=== PATIENT | female | born 1955 | race Caucasian/White ===

== ENCOUNTER 2017-02-28 15:59 | Inpatient (IN) | payer OTHER ==
[2017-02-28] VITALS (7 sets, daily range): BP systolic 95–115; BP diastolic 63–70
[~2017-02-28] VITALS: Ht 167.6 cm; Wt 50.8 kg
[~2017-02-28 15:59] MED LIST: BUPR300T55 PO; EFFEXOR; GABA-1 PO; MELO-150 PO; MUSCLE RELAXANT; NEURONTIN; TIZA-1 PO
[2017-02-28] MEDS ORDERED: MIL50PT GT (16:12)
[2017-02-28] MEDS ORDERED: METHY10 GT (16:12)
--- NOTE | 2017-02-28 16:15 | ER Report ---
History and Physical Time Seen By MD: 16:15 Hx. of Stated Complaint: PT. here for RLQ pain, radiates to left side. Doctor sent her for further work-up. Fever, blood and protein in urine at doctor's office today. HPI/ROS CHIEF COMPLAINT: Abdominal pain HISTORY OF PRESENT ILLNESS: 61-year-old female patient presents to emergency room with complaint of right sided abdominal pain. Patient states she's been having pain since Sunday. Patient states that pain is worse with walking as well as riding in the car. She states she is not had nausea, vomiting yesterday. She states she's not had much to eat today, less than should eat was toast around noon. She states she's had fever of 101.4. She states she's not had any sinus congestion, cough, sore throat. She states that pain seemed to start in the right lower quadrant, has migrated around the abdomen but has stopped in the right lower quadrant. She rates pain currently 2-3 out of 10. She has not taken any medication for this. She was seen by her primary care provider who referred her to the emergency room for further evaluation. REVIEW OF SYSTEMS: Respiratory: No cough, no dyspnea. Cardiovascular: No chest pain, no palpitations. Gastrointestinal: As noted above Musculoskeletal: No back pain. Allergies: Coded Allergies: cod liver oil (Verified Adverse Reaction, Mild, HAIR LOSS, 02/28/17) Uncoded Allergies: BANDAID [employer]IVE [employer] (Allergy, Mild, SKIN IRRITATION, 01/08/12) Home Meds Reported Medications Methylphenidate Hcl (RITALIN) 10 Mg Tab, 10 MG GT, TAB 02/28/17 Milnacipran (SAVELLA) 50 Mg Tab, 50 MG GT, TAB 02/28/17 Tizanidine Hcl (Zanaflex) 2 Mg Tablet, 4 MG PO QHS 01/08/12 Gabapentin (Neurontin) 600 Mg Tablet, 600 MG PO PM AND HS 01/08/12 Discontinued Reported Medications Bupropion Hcl (Wellbutrin Xl) 300 Mg Tab.sr.24h, 300 MG PO QAM 01/08/12 Meloxicam (Mobic) 15 Mg Tablet, 15 MG PO QPM 01/08/12 Past Medical/Surgical History Patient has a past medical history of depression, abnormal Pap smear. Patient has a surgical history of finger repair, tonsillectomy, LASIK surgery. Reviewed Nurses Notes: Yes Constitutional Vital Sign - Last 24 Hours 02/28/17 16:04 Temp 97.5 Resp 20 O2 Delivery Room Air Intake and Output 02/28/17 02/28/17 03/01/17 15:00 23:00 07:00 Intake Total 1000 ml Balance 1000 ml Physical Exam General Appearance: The patient is alert, has no immediate need for airway protection and no current signs of toxicity. Respiratory: Chest is non tender, lungs are clear to auscultation. Cardiac: regular rate and rhythm Gastrointestinal: Abdomen is soft and tender in right upper and lower quadrants , no masses, bowel sounds are hyperactive. Musculoskeletal: Neck: Neck is supple and non tender. Extremities have full range of motion and are non tender. Skin: No rashes or lesions. DIFFERENTIAL DIAGNOSIS: After history and physical exam differential diagnosis was considered for abdominal pain including but not limited to appendicitis, cholecystitis, gastritis and urinary tract infection. Medical Decision Making Data Points Result Diagram: 02/28/17 1626 02/28/17 1626 Laboratory Hematology Test 02/28/17 16:26 02/28/17 16:56 Red Blood Count 4.80 M/uL (4.17-5.56) Mean Corpuscular Volume 93.7 fL (80.0-96.0) Mean Corpuscular Hemoglobin 32.7 pg (26.0-33.0) Mean Corpuscular Hemoglobin Concent 34.8 g/dL (32.0-36.0) Red Cell Distribution Width 12.3 % (11.5-14.5) Mean Platelet Volume 8.3 fL (7.2-11.1) Neutrophils (%) (Auto) 89.5 % (39.4-72.5) Lymphocytes (%) (Auto) 4.6 % (17.6-49.6) Monocytes (%) (Auto) 5.5 % (4.1-12.4) Eosinophils (%) (Auto) 0.1 % (0.4-6.7) Basophils (%) (Auto) 0.3 % (0.3-1.4) Nucleated RBC Relative Count (auto) 0.0 /100WBC Neutrophils # (Auto) 17.5 K/uL (2.0-7.4) Lymphocytes # (Auto) 0.9 K/uL (1.3-3.6) Monocytes # (Auto) 1.1 K/uL (0.3-1.0) Eosinophils # (Auto) 0.0 K/uL (0.0-0.5) Basophils # (Auto) 0.1 K/uL (0.0-0.1) Nucleated RBC Absolute Count (auto) 0.01 K/uL Sodium Level 133 mmol/L (137-145) Potassium Level 3.6 mmol/L (3.5-5.0) Chloride Level 95 mmol/L (98-107) Carbon Dioxide Level 27 mmol/L (22-31) Blood Urea Nitrogen 9 mg/dl (7-18) Creatinine 0.70 mg/dl (0.52-1.04) Glomerular Filtration Rate Calc > 60.0 Random Glucose 142 mg/dl (75-110) Calcium Level 9.4 mg/dl (8.4-10.2) Total Bilirubin 0.9 mg/dl (0.2-1.3) Aspartate Amino Transf (AST/SGOT) 25 U/L (0-35) Alanine Aminotransferase (ALT/SGPT) 23 U/L (0-56) Alkaline Phosphatase 95 U/L (0-126) C-Reactive Protein 17.7 mg/dl (<1.0) Total Protein 8.1 gm/dl (6.3-8.2) Albumin 4.3 g/dl (3.5-5.0) Amylase Level 62 U/L (0-110) Lipase 27 U/L (23-300) Urine Color Yellow Urine Clarity Clear Urine pH 7.0 pH (4.8-9.5) Urine Specific Bryant 1.008 Urine Protein 30 mg/dL (NEGATIVE) Urine Glucose (UA) 50 mg/dL (NEGATIVE) Urine Ketones Negative mg/dL (NEGATIVE) Urine Blood Small (NEGATIVE) Urine Nitrite Negative (NEGATIVE) Urine Bilirubin Negative (NEGATIVE) Urine Urobilinogen 2.0 mg/dL (0.2-1.9) Urine Leukocyte Esterase Negative (NEGATIVE) Urine RBC 2 /HPF (0-2/HPF) Urine WBC 1 /HPF (0-5/HPF) Urine Squamous Epithelial Cells Few /LPF (</=FEW) Urine Transitional Epithelial Cells Few /LPF (NONE-FEW) Urine Bacteria Negative /HPF (NONE-FEW) Urine Mucus None /HPF (NONE-FEW) Chemistry Test 02/28/17 16:26 02/28/17 16:56 White Blood Count 19.5 k/uL (4.5-11.0) Red Blood Count 4.80 M/uL (4.17-5.56) Hemoglobin 15.7 g/dL (12.0-16.0) Hematocrit 45.0 % (34.0-47.0) Mean Corpuscular Volume 93.7 fL (80.0-96.0) Mean Corpuscular Hemoglobin 32.7 pg (26.0-33.0) Mean Corpuscular Hemoglobin Concent 34.8 g/dL (32.0-36.0) Red Cell Distribution Width 12.3 % (11.5-14.5) Platelet Count 226 K/uL (150-450) Mean Platelet Volume 8.3 fL (7.2-11.1) Neutrophils (%) (Auto) 89.5 % (39.4-72.5) Lymphocytes (%) (Auto) 4.6 % (17.6-49.6) Monocytes (%) (Auto) 5.5 % (4.1-12.4) Eosinophils (%) (Auto) 0.1 % (0.4-6.7) Basophils (%) (Auto) 0.3 % (0.3-1.4) Nucleated RBC Relative Count (auto) 0.0 /100WBC Neutrophils # (Auto) 17.5 K/uL (2.0-7.4) Lymphocytes # (Auto) 0.9 K/uL (1.3-3.6) Monocytes # (Auto) 1.1 K/uL (0.3-1.0) Eosinophils # (Auto) 0.0 K/uL (0.0-0.5) Basophils # (Auto) 0.1 K/uL (0.0-0.1) Nucleated RBC Absolute Count (auto) 0.01 K/uL Glomerular Filtration Rate Calc > 60.0 Calcium Level 9.4 mg/dl (8.4-10.2) Total Bilirubin 0.9 mg/dl (0.2-1.3) Aspartate Amino Transf (AST/SGOT) 25 U/L (0-35) Alanine Aminotransferase (ALT/SGPT) 23 U/L (0-56) Alkaline Phosphatase 95 U/L (0-126) C-Reactive Protein 17.7 mg/dl (<1.0) Total Protein 8.1 gm/dl (6.3-8.2) Albumin 4.3 g/dl (3.5-5.0) Amylase Level 62 U/L (0-110) Lipase 27 U/L (23-300) Urine Color Yellow Urine Clarity Clear Urine pH 7.0 pH (4.8-9.5) Urine Specific Bryant 1.008 Urine Protein 30 mg/dL (NEGATIVE) Urine Glucose (UA) 50 mg/dL (NEGATIVE) Urine Ketones Negative mg/dL (NEGATIVE) Urine Blood Small (NEGATIVE) Urine Nitrite Negative (NEGATIVE) Urine Bilirubin Negative (NEGATIVE) Urine Urobilinogen 2.0 mg/dL (0.2-1.9) Urine Leukocyte Esterase Negative (NEGATIVE) Urine RBC 2 /HPF (0-2/HPF) Urine WBC 1 /HPF (0-5/HPF) Urine Squamous Epithelial Cells Few /LPF (</=FEW) Urine Transitional Epithelial Cells Few /LPF (NONE-FEW) Urine Bacteria Negative /HPF (NONE-FEW) Urine Mucus None /HPF (NONE-FEW) Urinalysis Test 02/28/17 16:56 Urine Color Yellow Urine Clarity Clear Urine pH 7.0 pH (4.8-9.5) Urine Specific Bryant 1.008 Urine Protein 30 mg/dL (NEGATIVE) Urine Glucose (UA) 50 mg/dL (NEGATIVE) Urine Ketones Negative mg/dL (NEGATIVE) Urine Blood Small (NEGATIVE) Urine Nitrite Negative (NEGATIVE) Urine Bilirubin Negative (NEGATIVE) Urine Urobilinogen 2.0 mg/dL (0.2-1.9) Urine Leukocyte Esterase Negative (NEGATIVE) Urine RBC 2 /HPF (0-2/HPF) Urine WBC 1 /HPF (0-5/HPF) Urine Squamous Epithelial Cells Few /LPF (</=FEW) Urine Transitional Epithelial Cells Few /LPF (NONE-FEW) Urine Bacteria Negative /HPF (NONE-FEW) Urine Mucus None /HPF (NONE-FEW) EKG/Imaging Imaging CT abdomen and pelvis with IV contrast Indication: Right lower quadrant pain Comparison: None available. . Technique: Axial CT images were obtained through the abdomen and pelvis during injection of nonionic iodinated intravenous contrast. Reformatted coronal and sagittal images were also obtained. One of the following dose optimization techniques was utilized in the performance of this exam: Automated exposure control; adjustment of the mA and/or kV according to the patient's size ; or use of an iterative reconstruction technique. Specific details can be referenced in the facility's radiology CT exam operational policy. Contrast: 88 ml of Isovue-370 IV contrast. Findings: Lower lung briggs: Limited views lower lung field are unremarkable. Liver: No focal parenchymal abnormality of the liver. Biliary: Gallbladder appears unremarkable as well as the intra and extra hepatic biliary system. Pancreas: Normal appearance. Spleen: Normal appearance. Adrenal glands: Unremarkable. Kidneys / retroperitoneum: No evidence of nephrolithiasis or hydronephrosis Bowel / peritoneum / mesenteries: Appendicolith is noted towards the base of the appendix. The appendix is dilated, hyperemic with a large amount of periappendiceal stranding which is seen along the hepatic edge and traversing down the right paracolic gutter. Adjacent inflammatory nodes are noted. No evidence of free air or drainable fluid collection. Lymph node assessment: No pathologic adenopathy identified. Pelvic structures: There is a well-circumscribed, enhancing circular lesion within the uterus measuring 2.9 x 2.7 cm most indicative of a fibroid. Vessels: No significant atherosclerotic calcifications seen throughout a nonaneurysmal abdominal aorta and branches. Enlarged left gonadal vein is noted. Musculoskeletal / Body wall: No acute or aggressive osseous abnormality. IMPRESSION: 1. Acute appendicitis. Large amount of adjacent inflammatory change without evidence of free air or drainable fluid collection. 2. Other incidental findings as above. Results were called to Dr. KEITH CARDONA at 02/28/2017 5:38 PM. Report Dictated By: Nitish Tran MD at 02/28/2017 5:30 PM Report E-Signed By: Nitish Tran MD at 02/28/2017 5:38 PM ED Course/Re-evaluation ED Course Patient was admitted to exam room, history and physical were obtained. Differential diagnoses were considered. On exam patient had tenderness in the right upper and lower quadrants. A CBC, CMP, urinalysis, CT scan of abdomen and pelvis was done. Patient had a white count of 19,000 with left shift, CMP is unremarkable, urinalysis was also unremarkable. CT scan of abdomen and pelvis shows a acute appendicitis with significant amounts of fat stranding. I discussed the case with Dr. Vickers, surgeon, who stated that he already talked with the patient's as they met in the hallway. He had already reviewed the CT scan and was going to take the patient's surgery. He requested the patient receive 1 g of ertapenem prior to surgery. He also stated that he was going into a case and would be down to evaluate the patient after that. I discussed this with the patient and her and they verbalized understanding and agreement with plan. Decision to Disposition Date: Feb 28, 2017 Decision to Disposition Time: 18:29 Depart Departure Latest Vital Signs Vital Signs Date Time Temp Pulse Resp B/P (MAP) Pulse Ox O2 Delivery O2 Flow Rate FiO2 02/28/17 16:04 97.5 20 Room Air Impression: Primary Impression: Appendicitis Condition: Condition Unchanged Disposition: ADMIT FROM ER TO OR Referrals: PETRA MAHAJAN (PCP) Problem Qualifiers Primary Impression: Appendicitis Appendicitis type: acute appendicitis Acute appendicitis type: with generalized peritonitis Qualified Codes: K35.2 - Acute appendicitis with generalized peritonitis KEITH CARDONA Feb 28, 2017 16:15
[2017-02-28] MEDS ORDERED: NS(*) 0.9% 1000 ML BAG 1,000 ML IV ONE (16:22)
[2017-02-28] MEDS ORDERED: IOPAMIDOL 76% 75 ML INFUS BTL 75 ML ONE (16:36)
[2017-02-28] MEDS ORDERED: NS 0.9% 50 ML VIAL 50 ML ONE (16:36)
[2017-02-28 16:42] LABS: PLATELET COUNT, AUTOMATED 226 K/uL (150-450)
--- NOTE | 2017-02-28 17:41 | RADIOLOGY IMAGING REPORT ---
FACILITY: [facility] [place] PATIENT NAME: Monica Chase : 1955 MR: [id number] V: [id number] EXAM DATE: ORDERING PHYSICIAN: KEITH CARDONA TECHNOLOGIST: Location: [facility] [place] Patient: Monica Chase : 1955 Visit/Account:[id number] Date of Sevice: 02/28/2017 CT abdomen and pelvis with IV contrast Indication: Right lower quadrant pain Comparison: None available. . Technique: Axial CT images were obtained through the abdomen and pelvis during injection of nonioni c iodinated intravenous contrast. Reformatted coronal and sagittal images were also obtained. One of the following dose optimization techniques was utilized in the performance of this exam: Automated ex posure control; adjustment of the mA and/or kV according to the patient's size; or use of an iterativ e reconstruction technique. Specific details can be referenced in the facility's radiology CT exam operational policy. Contrast: 88 ml of Isovue-370 IV contrast. Findings: Lower lung briggs: Limited views lower lung field are unremarkable. Liver: No focal parenchymal abnormality of the liver. Biliary: Gallbladder appears unremarkable as well as the intra and extra hepatic biliary system. Pancreas: Normal appearance. Spleen: Normal appearance. Adrenal glands: Unremarkable. Kidneys / retroperitoneum: No evidence of nephrolithiasis or hydronephrosis Bowel / peritoneum / mesenteries: Appendicolith is noted towards the base of the appendix. The appen audra is dilated, hyperemic with a large amount of periappendiceal stranding which is seen along the he patic edge and traversing down the right paracolic gutter. Adjacent inflammatory nodes are noted. N o evidence of free air or drainable fluid collection. Lymph node assessment: No pathologic adenopathy identified. Pelvic structures: There is a well-circumscribed, enhancing circular lesion within the uterus mike uring 2.9 x 2.7 cm most indicative of a fibroid. Vessels: No significant atherosclerotic calcifications seen throughout a nonaneurysmal abdominal aort a and branches. Enlarged left gonadal vein is noted. Musculoskeletal / Body wall: No acute or aggressive osseous abnormality. IMPRESSION: 1. Acute appendicitis. Large amount of adjacent inflammatory change without evidence of free air or drainable fluid collection. 2. Other incidental findings as above. Results were called to Dr. KEITH CARDONA at 02/28/2017 5:38 PM. Report Dictated By: Nitish Tran MD at 02/28/2017 5:30 PM Report E-Signed By: Nitish Tran MD at 02/28/2017 5:38 PM WSN:[id number]
[2017-02-28] MEDS ORDERED: ERTAPENEM(*) 1 GM VIAL 1 GM in NS(*) 0.9% 100 ML ADDVANT BAG 100 ML IVPB ONE (18:05)
[2017-02-28] MEDS ORDERED: MORPHINE 4 MG/ML SYR IVP ONE (18:05)
[2017-02-28] MEDS ORDERED: ONDANSETRON 4 MG/2 ML VIAL IVP ONE (18:05)
[2017-02-28] MEDS ORDERED: FAMOTIDINE(*) 20MG/50ML PREMIX 50 ML IVPB ONE (18:30)
[2017-02-28] MEDS ORDERED: NORMOSOL R SOLN(*) 1000 ML BAG 1,000 ML IV ONE (18:30)
[2017-02-28] MEDS ORDERED: ROPIVACAINE 0.5% 20 ML VIAL ONE (18:47)
--- NOTE | 2017-02-28 19:03 | Gen Surgery History & Physical ---
History of Present Illness Chief Complaint Abdominal pain History of Present Illness 61-year-old female presents to the emergency room with a three-day history of abdominal pain that started periumbilically and migrated to the right lower quadrant. She's had subjective fevers and chills and had nausea and vomiting yesterday but not so much today. She's denied any constipation or diarrhea. Her white blood cell count in the emergency room was just under 20,[address] scan is suspicious for appendicitis with a lot of periappendiceal inflammation. There is no evidence of an abscess. I have been consult for further evaluation and management. History Home Meds Reported Medications Methylphenidate Hcl (RITALIN) 10 Mg Tab, 10 MG GT, TAB 02/28/17 Milnacipran (SAVELLA) 50 Mg Tab, 50 MG GT, TAB 02/28/17 Tizanidine Hcl (Zanaflex) 2 Mg Tablet, 4 MG PO QHS 01/08/12 Gabapentin (Neurontin) 600 Mg Tablet, 600 MG PO PM AND HS 01/08/12 Discontinued Reported Medications Bupropion Hcl (Wellbutrin Xl) 300 Mg Tab.sr.24h, 300 MG PO QAM 01/08/12 Meloxicam (Mobic) 15 Mg Tablet, 15 MG PO QPM 01/08/12 Allergies: Coded Allergies: cod liver oil (Verified Adverse Reaction, Mild, HAIR LOSS, 02/28/17) Uncoded Allergies: B[employer] (Allergy, Mild, SKIN IRRITATION, 01/08/12) Review of Systems All Systems Reviewed/Normal: Yes, Except as Noted Constitutional: Fever, Chills Gastrointestinal: Nausea, Vomiting, Abdominal Pain Exam General Appearance: Alert, Awake, No Acute Distress, Afebrile Neuro: No Gross deficits Eyes: PERRLA GI: Other (soft, right lower quadrant tenderness to palpation with focal peritoneal signs) Extremities: Warm, Perfused Medical Decision Making Data Points Result Diagram: 02/28/17 1626 02/28/17 1626 Assessment and Plan Problems: (1) Appendicitis Status: Acute Assessment & Plan: 02/28/17: Admit, IV antibiotics, nothing by mouth, to OR tonight for diagnostic laparoscopy with appendectomy. I have explained this plan to her. I have explained the possibilities for surgery since her CT scan looks like her right lower quadrant is very inflamed around the appendix and her symptoms have been going on for 3 days. It is possible that I could get into her abdomen and find it very difficult to remove her appendix because of a phlegmon. If this is the case I may not remove her appendix and will treat her with antibiotics with plans for interval appendectomy in 6 weeks after the inflammation has completely resolved. I have mentioned the possibility of needing to put a drain in if an abscess is found during surgery. I have mentioned the possibility of her needing to remain in the hospital for several days on antibiotics depending on the severity of her appendix as assessed during surgery. I have explained the procedure in great detail as well as the alternatives, risks, and expected recovery. She indicates her understanding of this discussion and her questions been answered. She indicates that she would like to proceed with this plan including surgery. Condition Stable Time Spent: < 30 min Venous Thromboembolism VTE Risk Physician Assess for VTE Risk: Yes Patient's VTE Risk: Low VTE Diagnostic Test 2 Days Prior to Admit: No Antithrombotics Is Pt On Any Antithrombotics?: No Problem Qualifiers (1) Appendicitis: Appendicitis type: acute appendicitis Acute appendicitis type: with generalized peritonitis Qualified Codes: K35.2 - Acute appendicitis with generalized peritonitis TONA APONTE MD Feb 28, 2017 19:03
[2017-02-28] MEDS ORDERED: SUCCINYLCHOL CHL 200MG/10ML VL ONE (19:05)
[2017-02-28] MEDS ORDERED: ROCURONIUM BROM 10 MG/ML 5 ML ONE (19:05)
[2017-02-28] MEDS ORDERED: KETOROLAC 30 MG/ML VIAL ONE (19:46)
[2017-02-28] MEDS ORDERED: PROPOFOL EMUL(*) 10MG/ML 20 ML 20 ML ONE (19:46)
[2017-02-28] MEDS ORDERED: DEXAMETHASONE SOD PHOS 10MG/ML ONE (19:46)
[2017-02-28] MEDS ORDERED: PHENYLEPHRINE/NS/PF 0.4MG/10ML ONE (19:46)
[2017-02-28] MEDS ORDERED: LIDOCAINE MPF 1% 5 ML VIAL ONE (19:46)
[2017-02-28] MEDS ORDERED: ONDANSETRON 4 MG/2 ML VIAL ONE (19:46)
[2017-02-28] MEDS ORDERED: SUGAMMADEX SOD 200 MG/2 ML SDV ONE (20:30)
[2017-02-28] MEDS ORDERED: NS 0.9% IRRIGATION 1000ML PLCT IR ONE (20:38)
[2017-02-28] MEDS ORDERED: NALOXONE HCL 0.4 MG/ML VIAL IVP PRN (21:00)
[2017-02-28] MEDS ORDERED: FLUSH 10 ML SYR IVP PRN (21:00)
[2017-02-28] MEDS ORDERED: fentaNYL CITR 100 MCG/2 ML AMP ONE (21:01)
--- NOTE | 2017-02-28 21:14 | Post Operative Progress Note ---
Post Operative Progress Note Date: Feb 28, 2017 Time: 21:01 Surgeon: Alee Dictation number: [id number] Anesthesia: GETA by Dr. Askew Pre-Op Diagnosis: Acute appendicitis Post-Op Diagnosis: TRAV Findings: C/W dx, advanced appendicitis with early phlegmon, no abscess Procedure(s): Lap appy Specimen Removed:(May be N/A): Appendix Complications: None Fluids: See anesthesia record Estimated Blood Loss: Minimal Date OP Note Dictated: Feb 28, 2017 Time OP Note Dictated: 21:03 TONA APONTE MD Feb 28, 2017 21:14
[2017-02-28] MEDS: HYDROmorphone PCA 6 MG/30 ML IV PRN (22:41)
[2017-02-28] MEDS: NS(*) 0.9% 1000 ML BAG 1,000 ML IV PRN (22:41)
--- NOTE | 2017-02-28 22:55 | OPERATIVE REPORT 1 ---
EVENT DATE: February 28, 2017 SURGEON: Neville Vickers MD ANESTHESIOLOGIST: Sebas Askew MD ANESTHESIA: General endotracheal anesthesia. PREOPERATIVE DIAGNOSIS Acute appendicitis. POSTOPERATIVE DIAGNOSIS Acute appendicitis. PROCEDURE PERFORMED Laparoscopic appendectomy. COMPLICATIONS None. CONDITION Stable. BLOOD LOSS Minimal. FINDINGS This patient had very advanced appendicitis with early phlegmon formation, but there was not any abscess, and no obvious perforation. SPECIMEN Appendix. INDICATIONS This is a 61-year-old female who presented to the Emergency Department after three days of abdominal pain that migrated to the right lower quadrant. She was also having associated nausea, vomiting, fevers, and chills. No constipation or diarrhea. Her white blood cell count was almost 20,000. A CT scan was suspicious for acute appendicitis with very marked periappendiceal inflammation. With this information, she was consented for appendectomy. DESCRIPTION OF PROCEDURE The patient was brought to the operating room and placed supine on the operating table. General endotracheal anesthesia was administered, and her abdomen was prepped and draped in a sterile fashion. Timeout was completed, and I injected the infraumbilical skin with 0.5% ropivacaine plain. I made a curvilinear smiley face type incision in the infraumbilical rim and dissected down to the dermis and into the subcutaneous fat. I identified the midline fascia and made a vertical incision in the midline fascia. I then grasped the fascial edges with Iain clamps and retracted the fascia towards the ceiling away from the underlying viscera and then bluntly entered her peritoneal cavity with my finger. I placed two interrupted 0 Vicryl sutures transversely through the vertical fascial defect, inserted a 12 mm Chaim type port through this wound, and secured it in place with sutures. I then insufflated the abdomen to a pressure of 15 mmHg and inserted a 5 mm, 30-degree angled scope through this port. Under direct visualization, I placed a 5 mm port in the suprapubic midline and a 5 mm port in the left lower quadrant. The patient was placed in Trendelenburg and planed towards her left to move the viscera from the right lower quadrant. I then identified the ascending colon and the cecum. I then observed where the terminal ileum emptied into this cecum and then began searching for the appendix in this location. I could not find the appendix in an easy fashion. I then mobilized the cecum by dividing the lateral attachments and medializing the cecum. Even then, I still was having difficulty finding the appendix. After doing some blunt dissection and identifying where the teniae come together at the end of the cecum, ultimately I was able to identify the base of the appendix, but it dove down into a retrocecal position into a phlegmonous mass. With some blunt dissection and using Harmonic dissection, I was ultimately able to separate it away from the phlegmonous mass. After quite a bit of dissection and cleaning off the proximal portion of the appendix, I made a window around the base of the appendix and used the Endo CESIA stapler with a blue load to divide the base of the appendix flush with the cecum. This helped me to identify the mesoappendix , which I divided in a slow progressive manner with the Harmonic scalpel and blunt dissection. Ultimately, I was able to get completely around the appendix and separate it from the phlegmonous tissue, and then it was placed in a surgical specimen retrieval bag and removed from the abdomen through the umbilical port site. I irrigated and dried the right lower quadrant and inspected the staple line, which was flush with the cecum. There was no remaining appendix left behind. When I inspected the edge of this phlegmon that I removed and mobilized, it looked like lateral to this that I could see the general femoral nerve which was intact, and the abdominal wall muscles as well as the psoas. I then reapproximated the peritoneum and covered up the general femoral nerve and the abdominal wall muscles on this area that I had dissected into in trying to free up the appendix, and so I reapproximated this tissue with running V-Loc absorbable suture without injuring the nerve or any other structures. This effectively closed down this space, and also I could clearly see the pocket that the appendix had been in. I irrigated and dried the right lower quadrant, making sure I removed all the irrigation fluid from the right lower quadrant and the pelvis, and then I placed a 10 mm flat Dominik- Niño drain into this area where the appendix had been and exited through the left lower quadrant port site. This was secured at the skin with an 0 silk suture. I then desufflated the peritoneal cavity while I watched where the drain was and held it into place so it drained nicely where the appendix was located. I then removed the remaining ports and instruments and then closed the midline fascia with interrupted 0 Vicryl sutures. When these were tied down , the fascia was well approximated with no remaining fascial defect. I closed the skin at the two remaining port sites with 4-0 Monocryl subcuticular sutures. The skin was cleaned and dried, and Steri-Strips were applied, followed by sterile surgical dressings on the two incisions and then drain sponges around the drain. The patient was then awakened and extubated in the operating room and transported to the recovery room in stable condition having tolerated the procedure without any apparent problems. MARISA
[2017-03-01 04:15] VITALS: BP 101/63
[2017-03-01 05:54] LABS: PLATELET COUNT, AUTOMATED 172 K/uL (150-450)
[2017-03-01] MEDS: NS(*) 0.9% 1000 ML BAG 1,000 ML IV PRN ×2 (06:40→16:26)
--- NOTE | 2017-03-01 07:05 | General Surgery Progress Note ---
Subjective Progress Notes Subjective Main complaint is postoperative pain. Mild nausea earlier, not not. No flatus. Feels hungry. Physical Exam Vital Signs Date Time Temp Pulse Resp B/P (MAP) Pulse Ox O2 Delivery O2 Flow Rate FiO2 03/01/17 04:37 14 97 03/01/17 04:15 97.5 66 101/63 (76) Room Air 02/28/17 23:30 0.5 General Appearance: Alert, Awake, No Acute Distress, Afebrile GI: Other (Soft, appropriate postop TTP, dressings C/D/I.) Extremities: Warm, Perfused Result Diagram: 03/01/17 0530 03/01/17 0530 Assessment and Plan Problems: (1) Appendicitis Status: Acute Assessment & Plan: 02/28/17: Admit, IV antibiotics, nothing by mouth, to OR tonight for diagnostic laparoscopy with appendectomy. I have explained this plan to her. I have explained the possibilities for surgery since her CT scan looks like her right lower quadrant is very inflamed around the appendix and her symptoms have been going on for 3 days. It is possible that I could get into her abdomen and find it very difficult to remove her appendix because of a phlegmon. If this is the case I may not remove her appendix and will treat her with antibiotics with plans for interval appendectomy in 6 weeks after the inflammation has completely resolved. I have mentioned the possibility of needing to put a drain in if an abscess is found during surgery. I have mentioned the possibility of her needing to remain in the hospital for several days on antibiotics depending on the severity of her appendix as assessed during surgery. I have explained the procedure in great detail as well as the alternatives, risks, and expected recovery. She indicates her understanding of this discussion and her questions been answered. She indicates that she would like to proceed with this plan including surgery. 03/01/17: POD#1 s/p lap appy, complex with early phlegmon. Doing well. No flatus. Will continue bowel rest but will allow ice chips today. Continue IV abx. Pt is afebrile and WBC is coming down. Ambulate, pulmonary hygiene, PPI for GI prophylaxis, hold off on lovenox due to nature of surgery and bleeding risk but using SCDs for VTE prophylaxis. Condition Stable. Time Spent: < 30 min Exam Sepsis Risk: No Definite Risk Problem Qualifiers (1) Appendicitis: Appendicitis type: acute appendicitis Acute appendicitis type: with generalized peritonitis Qualified Codes: K35.2 - Acute appendicitis with generalized peritonitis TONA APONTE MD Mar 01, 2017 07:05
[2017-03-01] MEDS ORDERED: CALCIUM CL 100 MG/1 ML SYR 1,000 MG in NS(*) 0.9% 100 ML BAG 100 ML IVPB ONE (07:30)
[2017-03-01 07:39] VITALS: Ht 167.6 cm; Wt 50.8 kg
[2017-03-01 08:04] VITALS: BP 106/93
[2017-03-01] MEDS: ERTAPENEM(*) 1 GM VIAL 1 GM in NS(*) 0.9% 100 ML BAG 100 ML IVPB SCH (09:13)
[2017-03-01] MEDS: PANTOPRAZOLE SOD 40 MG IV VIAL IVP SCH (09:13)
[2017-03-01 16:22] VITALS: BP 106/66
[2017-03-01] MEDS ORDERED: ERTAPENEM(*) 1 GM VIAL 1 GM in NS(*) 0.9% 100 ML ADDVANT BAG 100 ML IVPB SCH (18:00)
[2017-03-01 19:15] VITALS: BP 104/67
[2017-03-01 23:08] VITALS: BP 103/58
[2017-03-02] VITALS (7 sets, daily range): BP systolic 89–130; BP diastolic 51–81
[2017-03-02] MEDS: NS(*) 0.9% 1000 ML BAG 1,000 ML IV PRN (01:54)
[2017-03-02] MEDS: HYDROmorphone PCA 6 MG/30 ML IV PRN (02:04)
[2017-03-02 06:12] LABS: PLATELET COUNT, AUTOMATED 177 K/uL (150-450)
--- NOTE | 2017-03-02 08:19 | General Surgery Progress Note ---
Subjective Progress Notes Subjective Feeling pretty good. No flatus yet. Physical Exam Vital Signs Date Time Temp Pulse Resp B/P (MAP) Pulse Ox O2 Delivery O2 Flow Rate FiO2 03/02/17 07:39 12 90 03/02/17 07:21 Room Air 03/02/17 07:21 98.0 76 112/68 (83) 03/02/17 03:16 0.5 Intake and Output 03/03/17 07:00 Intake Total 120 ml Output Total 65 ml Balance 55 ml Intake Oral 120 ml Output Drainage Total 65 ml # Voids 1 General Appearance: Alert, Awake, No Acute Distress, Afebrile GI: Other (Soft, appropriate postop TTP, dressings C/D/I. RENATO with serosanguinous drainage.) Extremities: Warm, Perfused Result Diagram: 03/02/17 0540 03/02/17 0540 Assessment and Plan Problems: (1) Appendicitis Status: Acute Assessment & Plan: 02/28/17: Admit, IV antibiotics, nothing by mouth, to OR tonight for diagnostic laparoscopy with appendectomy. I have explained this plan to her. I have explained the possibilities for surgery since her CT scan looks like her right lower quadrant is very inflamed around the appendix and her symptoms have been going on for 3 days. It is possible that I could get into her abdomen and find it very difficult to remove her appendix because of a phlegmon. If this is the case I may not remove her appendix and will treat her with antibiotics with plans for interval appendectomy in 6 weeks after the inflammation has completely resolved. I have mentioned the possibility of needing to put a drain in if an abscess is found during surgery. I have mentioned the possibility of her needing to remain in the hospital for several days on antibiotics depending on the severity of her appendix as assessed during surgery. I have explained the procedure in great detail as well as the alternatives, risks, and expected recovery. She indicates her understanding of this discussion and her questions been answered. She indicates that she would like to proceed with this plan including surgery. 03/01/17: POD#1 s/p lap appy, complex with early phlegmon. Doing well. No flatus. Will continue bowel rest but will allow ice chips today. Continue IV abx. Pt is afebrile and WBC is coming down. Ambulate, pulmonary hygiene, PPI for GI prophylaxis, hold off on lovenox due to nature of surgery and bleeding risk but using SCDs for VTE prophylaxis. 03/02/17: POD#2. Doing well. Awaiting return of bowel function. Continue bowel rest until flatus. CCM. Condition Stable. Time Spent: < 30 min Exam Sepsis Risk: No Definite Risk Problem Qualifiers (1) Appendicitis: Appendicitis type: acute appendicitis Acute appendicitis type: with generalized peritonitis Qualified Codes: K35.2 - Acute appendicitis with generalized peritonitis TONA APONTE MD Mar 02, 2017 08:19
[2017-03-02] MEDS: ERTAPENEM(*) 1 GM VIAL 1 GM in NS(*) 0.9% 100 ML BAG 100 ML IVPB SCH (08:50)
[2017-03-02] MEDS: PANTOPRAZOLE SOD 40 MG IV VIAL IVP SCH (08:50)
[2017-03-02] MEDS: KCL/D1/2NS 20 MEQ 1000 ML 1,000 ML IV PRN (14:43)
[2017-03-03 02:06] VITALS: BP 119/71
[2017-03-03 06:18] LABS: PLATELET COUNT, AUTOMATED 193 K/uL (150-450)
[2017-03-03 06:58] VITALS: BP 114/77
[2017-03-03] MEDS: KCL/D1/2NS 20 MEQ 1000 ML 1,000 ML IV PRN (07:23)
[2017-03-03] MEDS: PANTOPRAZOLE SOD 40 MG IV VIAL IVP SCH (08:21)
[2017-03-03] MEDS: ERTAPENEM(*) 1 GM VIAL 1 GM in NS(*) 0.9% 100 ML BAG 100 ML IVPB SCH (09:46)
--- NOTE | 2017-03-03 10:39 | General Surgery Progress Note ---
Subjective Progress Notes Subjective Had some back pain yesterday, now better this morning. She feels bloated this morning after drinking some grape juice. Still passing flatus but not BM yet. Physical Exam Vital Signs Date Time Temp Pulse Resp B/P (MAP) Pulse Ox O2 Delivery O2 Flow Rate FiO2 03/03/17 08:56 93 Room Air 03/03/17 06:58 98.8 73 16 114/77 (89) 0.5 Intake and Output 03/04/17 07:00 Intake Total 1200 ml Output Total 200 ml Balance 1000 ml Intake Oral 200 ml IV Total 1000 ml Output Drainage Total 200 ml # Voids 1 General Appearance: Alert, Awake, No Acute Distress, Afebrile GI: Other (Soft, appropriate postop TTP, Dressings removed, incisions look good. RENATO drain with serous drainage.) Extremities: Warm, Perfused Result Diagram: 03/03/17 0548 03/03/17 0548 Assessment and Plan Problems: (1) Appendicitis Status: Acute Assessment & Plan: 02/28/17: Admit, IV antibiotics, nothing by mouth, to OR tonight for diagnostic laparoscopy with appendectomy. I have explained this plan to her. I have explained the possibilities for surgery since her CT scan looks like her right lower quadrant is very inflamed around the appendix and her symptoms have been going on for 3 days. It is possible that I could get into her abdomen and find it very difficult to remove her appendix because of a phlegmon. If this is the case I may not remove her appendix and will treat her with antibiotics with plans for interval appendectomy in 6 weeks after the inflammation has completely resolved. I have mentioned the possibility of needing to put a drain in if an abscess is found during surgery. I have mentioned the possibility of her needing to remain in the hospital for several days on antibiotics depending on the severity of her appendix as assessed during surgery. I have explained the procedure in great detail as well as the alternatives, risks, and expected recovery. She indicates her understanding of this discussion and her questions been answered. She indicates that she would like to proceed with this plan including surgery. 03/01/17: POD#1 s/p lap appy, complex with early phlegmon. Doing well. No flatus. Will continue bowel rest but will allow ice chips today. Continue IV abx. Pt is afebrile and WBC is coming down. Ambulate, pulmonary hygiene, PPI for GI prophylaxis, hold off on lovenox due to nature of surgery and bleeding risk but using SCDs for VTE prophylaxis. 03/02/17: POD#2. Doing well. Awaiting return of bowel function. Continue bowel rest until flatus. CCM. 03/03/17: POD#3. Doing well but GI function not yet back to normal. Will continue clear diet but pt instructed to go slow and if bloated to back off until bloating resolves. O/W, CCM. Condition Stable. Time Spent: < 30 min Exam Sepsis Risk: No Definite Risk Problem Qualifiers (1) Appendicitis: Appendicitis type: acute appendicitis Acute appendicitis type: with generalized peritonitis Qualified Codes: K35.2 - Acute appendicitis with generalized peritonitis TONA APONTE MD Mar 03, 2017 10:39
[2017-03-03 11:15] VITALS: BP 118/72
[2017-03-03 14:02] VITALS: BP 118/80
[2017-03-03 20:02] VITALS: BP 131/80
[2017-03-04] VITALS (7 sets, daily range): BP systolic 120–147; BP diastolic 68–84
[2017-03-04] MEDS: KCL/D1/2NS 20 MEQ 1000 ML 1,000 ML IV PRN (02:00)
[2017-03-04 05:56] LABS: PLATELET COUNT, AUTOMATED 249 K/uL (150-450)
[2017-03-04] MEDS: PANTOPRAZOLE SOD 40 MG IV VIAL IVP SCH (09:53)
[2017-03-04] MEDS: ERTAPENEM(*) 1 GM VIAL 1 GM in NS(*) 0.9% 100 ML BAG 100 ML IVPB SCH (09:54)
[2017-03-04] MEDS ORDERED: HYDROmorphone HCL 2 MG/ML SDV IVP PRN (10:30)
--- NOTE | 2017-03-04 10:30 | General Surgery Progress Note ---
Subjective Progress Notes Subjective No complaints. Had a BM. Tolerating clear diet. Physical Exam Vital Signs Date Time Temp Pulse Resp B/P (MAP) Pulse Ox O2 Delivery O2 Flow Rate FiO2 03/04/17 07:05 98.8 72 16 129/78 (95) 95 Nasal Cannula 0.5 Intake and Output 03/05/17 07:00 Output Total 120 ml Balance -120 ml Output Drainage Total 120 ml General Appearance: Alert, Awake, No Acute Distress, Afebrile GI: Other (Soft, appropriate postop TTP, incisions without erythema or drainage. RENATO with serous drainage.) Extremities: Warm, Perfused Result Diagram: 03/04/1751903/04/17 0520 Assessment and Plan Problems: (1) Appendicitis Status: Acute Assessment & Plan: 02/28/17: Admit, IV antibiotics, nothing by mouth, to OR tonight for diagnostic laparoscopy with appendectomy. I have explained this plan to her. I have explained the possibilities for surgery since her CT scan looks like her right lower quadrant is very inflamed around the appendix and her symptoms have been going on for 3 days. It is possible that I could get into her abdomen and find it very difficult to remove her appendix because of a phlegmon. If this is the case I may not remove her appendix and will treat her with antibiotics with plans for interval appendectomy in 6 weeks after the inflammation has completely resolved. I have mentioned the possibility of needing to put a drain in if an abscess is found during surgery. I have mentioned the possibility of her needing to remain in the hospital for several days on antibiotics depending on the severity of her appendix as assessed during surgery. I have explained the procedure in great detail as well as the alternatives, risks, and expected recovery. She indicates her understanding of this discussion and her questions been answered. She indicates that she would like to proceed with this plan including surgery. 03/01/17: POD#1 s/p lap appy, complex with early phlegmon. Doing well. No flatus. Will continue bowel rest but will allow ice chips today. Continue IV abx. Pt is afebrile and WBC is coming down. Ambulate, pulmonary hygiene, PPI for GI prophylaxis, hold off on lovenox due to nature of surgery and bleeding risk but using SCDs for VTE prophylaxis. 03/02/17: POD#2. Doing well. Awaiting return of bowel function. Continue bowel rest until flatus. CCM. 03/03/17: POD#3. Doing well but GI function not yet back to normal. Will continue clear diet but pt instructed to go slow and if bloated to back off until bloating resolves. O/W, CCM. 03/04/17: POD#4. Doing well. GI function returning. Will start regular diet and stop IV fluids. Convert to PO meds. Hopefully will remove RENATO tomorrow and d/c to home. Condition STable. Time Spent: < 30 min Exam Sepsis Risk: No Definite Risk Problem Qualifiers (1) Appendicitis: Appendicitis type: acute appendicitis Acute appendicitis type: with generalized peritonitis Qualified Codes: K35.2 - Acute appendicitis with generalized peritonitis TONA APONTE MD Mar 04, 2017 10:30
[2017-03-04] MEDS: AMOX/CLAV 875 MG TAB PO SCH (17:22)
[2017-03-04] MEDS: ONDANSETRON 4 MG/2 ML VIAL IVP PRN (18:39)
[2017-03-04] MEDS: FAMOTIDINE 20 MG TAB PO SCH (21:33)
[2017-03-05 03:27] VITALS: BP 124/70
--- NOTE | 2017-03-05 07:35 | Short(Outpt) Discharge Summary ---
Discharge Summary Reason for Hosp/Final Diag: (1) Appendicitis Status: Acute Hospital Course & Plan: 02/28/17: Admit, IV antibiotics, nothing by mouth, to OR tonight for diagnostic laparoscopy with appendectomy. I have explained this plan to her. I have explained the possibilities for surgery since her CT scan looks like her right lower quadrant is very inflamed around the appendix and her symptoms have been going on for 3 days. It is possible that I could get into her abdomen and find it very difficult to remove her appendix because of a phlegmon. If this is the case I may not remove her appendix and will treat her with antibiotics with plans for interval appendectomy in 6 weeks after the inflammation has completely resolved. I have mentioned the possibility of needing to put a drain in if an abscess is found during surgery. I have mentioned the possibility of her needing to remain in the hospital for several days on antibiotics depending on the severity of her appendix as assessed during surgery. I have explained the procedure in great detail as well as the alternatives, risks, and expected recovery. She indicates her understanding of this discussion and her questions been answered. She indicates that she would like to proceed with this plan including surgery. 03/01/17: POD#1 s/p lap appy, complex with early phlegmon. Doing well. No flatus. Will continue bowel rest but will allow ice chips today. Continue IV abx. Pt is afebrile and WBC is coming down. Ambulate, pulmonary hygiene, PPI for GI prophylaxis, hold off on lovenox due to nature of surgery and bleeding risk but using SCDs for VTE prophylaxis. 03/02/17: POD#2. Doing well. Awaiting return of bowel function. Continue bowel rest until flatus. CCM. 03/03/17: POD#3. Doing well but GI function not yet back to normal. Will continue clear diet but pt instructed to go slow and if bloated to back off until bloating resolves. O/W, CCM. 03/04/17: POD#4. Doing well. GI function returning. Will start regular diet and stop IV fluids. Convert to PO meds. Hopefully will remove RENATO tomorrow and d/c to home. 03/05/17: POD#5. Doing well. Having BMs. Tolerating diet. RENATO removed today. Will d/c to home. Departure Discharge to: Home, Self Care Discharge Instructions Home Meds Reported Medications Methylphenidate Hcl (RITALIN) 10 Mg Tab, 10 MG GT, TAB 02/28/17 Milnacipran (SAVELLA) 50 Mg Tab, 50 MG GT, TAB 02/28/17 Tizanidine Hcl (Zanaflex) 2 Mg Tablet, 4 MG PO QHS 01/08/12 Gabapentin (Neurontin) 600 Mg Tablet, 600 MG PO PM AND HS 01/08/12 Discontinued Reported Medications Bupropion Hcl (Wellbutrin Xl) 300 Mg Tab.sr.24h, 300 MG PO QAM 01/08/12 Meloxicam (Mobic) 15 Mg Tablet, 15 MG PO QPM 01/08/12 Follow up Referrals: General Surgery - 03/20/17 @ Surgery, General with Tona Aponte Md You have a follow up appointment scheduled with Dr. Aponte on 03/20/17, at 4:30pm. Diet: Regular Activity: As Tolerated Special Instructions: You may shower starting tomorrow, 03/06/17, but don't immerse your incisions for 2 weeks. Change the dressing on the drain site daily, more often if needed if there's a lot of drainage from the drain hole. You can leave the drain site open to air when there's no further drainage. Problem Qualifiers (1) Appendicitis: Appendicitis type: acute appendicitis Acute appendicitis type: with generalized peritonitis Qualified Codes: K35.2 - Acute appendicitis with generalized peritonitis TONA APONTE MD Mar 05, 2017 07:35
[2017-03-05] MEDS: AMOX/CLAV 875 MG TAB PO SCH (08:00)
[2017-03-05] MEDS: ONDANSETRON 4 MG/2 ML VIAL IVP PRN (08:10)
[2017-03-05 08:15] VITALS: BP 121/76
[2017-03-05] MEDS: FAMOTIDINE 20 MG TAB PO SCH (08:15)
== END 2017-03-05 10:35 | disposition home or self-care (01) | DRG 340 ==
LOC: ER 16:18 → OR 18:30 → MED 21:30 → OBSVTOIN 21:30
PROVIDERS: ADMIT Surgery; ATTEND Surgery
PROC: 0DTJ4ZZ Resection of Appendix, Percutaneous Endoscopic Approach (ICD-10-PCS; principal; 2017-02-28 19:00)
DX: K35.2 Acute appendicitis with generalized peritonitis (principal); F32.9 Major depressive disorder, single episode, unspecified; M19.90 Unspecified osteoarthritis, unspecified site; Z91.013 Allergy to seafood; Z91.048 Other nonmedicinal substance allergy status; Z87.898 Personal history of other specified conditions; Z87.42 Personal history of other diseases of the female genital tract
CPT/HCPCS: 36415; 36416; 74177; 81001; 82040; 82150; 82247; 82310; 82374; 82435; 82565; 82947; 82948; 83690; 84075; 84132; 84155; 84295; 84450; 84460; 84520; 85025; 86140; 88304; 96361; 96365; 96375; 99285; C9113; J0330; J1100; J1170; J1335; J1885; J2001; J2270; J2370; J2405; J2704; J2795; J3010; J3480; J3490; J7030; J7050; Q9967

== ENCOUNTER → 2017-03-20 | Outpatient (CLI) | payer OTHER ==
[2017-03-01 07:39] VITALS: BMI 18.1
[~2017-03-20] MED LIST changes: +METHY10 GT; +MIL50PT GT
[2017-03-20 17:25] LABS: PLATELET COUNT, AUTOMATED 390 K/uL (150-450)
== END ==
LOC: LAB 17:02
PROVIDERS: ATTEND Surgery
DX: R10.31 Right lower quadrant pain (principal); R19.7 Diarrhea, unspecified
CPT/HCPCS: 36415; 82310; 82374; 82435; 82565; 82947; 84132; 84295; 84520; 85025

== ENCOUNTER → 2017-03-21 | Outpatient (CLI) | payer OTHER ==
[2017-03-01 07:39] VITALS: BMI 18.1
[~2017-03-21] MED LIST changes: +IOPAMIDOL 76% 75 ML INFUS BTL 75 ML ONE; +NS 0.9% 20 ML SDV 40 ML ONE
--- NOTE | 2017-03-21 14:39 | RADIOLOGY IMAGING REPORT ---
FACILITY: [facility] [place] PATIENT NAME: Monica Chase : 1955 MR: [id number] V: [id number] EXAM DATE: ORDERING PHYSICIAN: TONA APONTE TECHNOLOGIST: Location: [facility] Patient: Monica Chase : 1955 Visit/Account:[id number] Date of Sevice: 03/21/2017 ABDOMEN/PELVIS WITH CONTRAST HISTORY: Diarrhea, right lower quadrant pain, prior appendectomy two weeks ago TECHNIQUE: Following administration of IV contrast contiguous axial images acquired through the abdom en/pelvis. Coronal and sagittal reformatting also performed. Dose Lowering Technique One of the following dose optimization techniques was utilized in the performance of this exam: Autom ated exposure control; adjustment of the mA and/or kV according to the patient's size; or use of an i terative reconstruction technique. Specific details can be referenced in the facility's radiology C T exam operational policy. CONTRAST: 75 mL Isovue-370 COMPARISON: August 28, 2017 FINDINGS: Visualized lung bases: Negative. Hepatobiliary: Negative. Spleen: Negative. Adrenals: Negative. Pancreas: Negative. Kidneys ureters or bladder: Negative. Genitalia: 2.9 cm circular enhancing lesion within the uterus is again seen GI: Surgical clips adjacent to the cecum from the recent appendectomy. There is a small amount of f luid seen in the right paracolic gutter, adjacent to the cecum and pelvic cul-de-sac although likely postoperative in nature. No organized collections are identified. There is mild thickening of the w all of the terminal ileum which may be reactive from the recent surgery. A moderate amount of fecal material is seen in the cecum Vessels/spaces/nodes: Definitely noted are pelvic varicosities and a prominent left ovarian vein Bones/soft tissues: No aggressive appearing bone lesions are seen Additional findings: None pertinent. IMPRESSION: Post surgical changes from a recent appendectomy with a small amount of fluid seen in the right parac olic gutter, adjacent to the cecum and pelvic cul-de-sac which is likely postoperative in nature. No organized collections are identified. There is mild thickening of the wall of the terminal ileum which may be reactive from the recent surg bravo Moderate amount of fecal material seen in the cecum 2.9 cm circular enhancing lesion within the uterus which may represent a fibroid Report Dictated By: Dede Prason MD at 03/21/2017 2:26 PM Report E-Signed By: Dede Parson MD at 03/21/2017 2:35 PM WSN:[email or web address]
== END ==
LOC: CT 08:47
PROVIDERS: ATTEND Surgery
DX: N85.9 Noninflammatory disorder of uterus, unspecified (principal); Z90.49 Acquired absence of other specified parts of digestive tract; R19.7 Diarrhea, unspecified
CPT/HCPCS: 36415; 74177; 87324; 87449; J7050; Q9967

== ENCOUNTER → 2017-07-18 | Outpatient (CLI) | payer OTHER ==
[2017-03-01 07:39] VITALS: BMI 18.1
[~2017-07-18] MED LIST changes: -IOPAMIDOL 76% 75 ML INFUS BTL 75 ML ONE; -NS 0.9% 20 ML SDV 40 ML ONE
--- NOTE | 2017-07-18 14:14 | RADIOLOGY IMAGING REPORT ---
FACILITY: [facility] PATIENT NAME: Monica Chase : 1955 MR: [id number] V: [id number] EXAM DATE: ORDERING PHYSICIAN: PETRA MAHAJAN TECHNOLOGIST: Location: [facility] [place] Patient: Monica Chase : 1955 Visit/Account:[id number] Date of Sevice: 07/18/2017 DEXA Scan Clinical history: Postmenopausal screening. Comparison: DEXA scan from 01/07/2016. LUMBAR SPINE: The bone mineral density (BMD) measured from L1-L4 correlates with a Z-score of 0.2 and a T-score of -1.7 which is osteopenia as defined by the World Health Organization. The corresponding risk of frac ture in the lumbar spine is 3-4 times increased compared with a young adult reference population. Th is value has increased by five % since the prior study. More than 5% change is considered significan t. HIP: Bone mineral density (BMD) measured in the LEFT total hip region correlates with a Z-score by 0.9 and a T-score of is 2.3 which is osteopenia as defined by the World Health Organization. The correspond ing risk of fracture in the hip is 4-6 times increased compared to a young adult reference population . This value has decreased by 0.6 % since the prior study. More than 5% change is considered signifi cant. T score left femoral neck -2.1 Bone mineral density (BMD) measured in the Femoral Neck region measures 0.745 g/cm?. IMPRESSION: 1. Lumbar spine: Osteopenia. There has been 5% increase in the bone mineral density since the previ ous exam. 2. Left Total Hip: Osteopenia. There has been 0.6% decrease in the bone mineral density since the p revious exam. 3. Femoral Neck: Bone Mineral Density is 0.745 g/cm? The next DEXA scan of this patient should include the following sites: L1-L4 and the left hip. FRAX? WHO Fracture Risk Assessment Tool link: <http://www.shef.ac.uk/FRAX/tool.jsp?locationValue=9> PLEASE NOTE: 1) The World Health Organization defines low BMD as follows: T-score Normal > -1 Osteopenia < -1 and > -2.5 Osteoporosis < -2.5 without fractures Established osteoporosis < -2.5 with fractures 2) In general, you may wish to consider: Diagnosis Treatment Follow-up DEXA Normal BMD Prevention 2-3 years Osteopenia Prevention/therapy 1-2 years Osteoporosis Therapy Yearly 3) Fracture risk estimated from the T-score is more accurate for vertebral fractures (often spontane ous) than for hip fractures. Report Dictated By: Dede Parson MD at 07/18/2017 2:09 PM Report E-Signed By: Dede Parson MD at 07/18/2017 2:10 PM WSN:[email or web address]
--- NOTE | 2017-07-18 15:56 | RADIOLOGY IMAGING REPORT ---
FACILITY: [facility] - [place] PATIENT NAME: SHANTI KAUR : [id number] MR: [id number] V: [id number] EXAM DATE: [id number] ORDERING PHYSICIAN: PETRA MAHAJAN TECHNOLOGIST: Karen Burger PROCEDURE:BILATERAL DIGITAL SCREENING MAMMOGRAM WITH CAD ASSISTED INTERPRETATION & 3D TOMOSYNTHESIS COMPARISON:Prior mammograms 01/04/16, 12/16/13. INDICATIONS:screening FINDINGS: Moderately dense mildly heterogeneous fibroglandular tissue is seen throughout the breasts. The parenchymal pattern has remained stable allowing for difference in mammographic technique & patient positioning. There is no evidence of malignant appearing mass, malignant appearing calcifications or other secondary sign of malignancy in either breast. DIAGNOSTIC CATEGORY 1--NEGATIVE. RECOMMENDATIONS: ROUTINE MAMMOGRAM AND CLINICAL EVALUATION. IMPRESSION: BIRADS 1: Negative. No significant abnormality is seen. Dictated by: Dede Parson M.D. on 07/18/2017 at 15:14 Transcribed by: LALY on 07/18/2017 at 15:35 Approved by: Dede Parson M.D. on 07/18/2017 at 15:55 [facility]
== END ==
LOC: MAMO 01:32
PROVIDERS: ATTEND Nurse Practitioner Psychiatric/Mental Health
DX: Z13.820 Encounter for screening for osteoporosis (principal); Z12.31 Encounter for screening mammogram for malignant neoplasm of breast; M85.88 Other specified disorders of bone density and structure, other site
CPT/HCPCS: 77063; 77067; 77080